=== PATIENT | female | born 2005 | race Caucasian/White ===

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

== ENCOUNTER 2024-02-12 10:00 | Outpatient (CLI) | payer MEDICAID, SELFPAY ==
[2024-02-12 15:31] LABS: Bacterial Vaginosis* Negative (Negative); Candida glab/krus NOT DETECTED (No Detected); Candida species DETECTED (No Detected); Trichomonas vaginalis NOT DETECTED (No Detected)
[2024-02-12 16:01] LABS: Chlamydia DNA Amplified* NOT DETECTED (No Detected); GC DNA Amplified* NOT DETECTED (No Detected)
== END 2024-02-12 10:01 | disposition home or self-care (01) ==
PROVIDERS: PCP Physician Assistant Medical; Visit Provider Registered Nurse
DX: N89.8 Other specified noninflammatory disorders of vagina (principal); Z11.3 Encounter for screening for infections with a predominantly sexual mode of transmission
CPT/HCPCS: 81513; 87481; 87491; 87591; 87661

== ENCOUNTER 2025-02-17 13:32 | Outpatient (CLI) | payer MEDICAID, SELFPAY | END 2025-02-17 13:33 | disposition home or self-care (01) | LOC: NFLDREF 02-21 07:10 | PROVIDERS: PCP Physician Assistant Medical; Referring Provider Physician Assistant Medical; Visit Provider Physician Assistant Medical | DX: F32.A Depression, unspecified (principal); F41.9 Anxiety disorder, unspecified; F90.9 Attention-deficit hyperactivity disorder, unspecified type; R80.9 Proteinuria, unspecified | CPT/HCPCS: 80053; 82306; 82607; 82728; 84439; 84443 ==